=== PATIENT | male | born 1950 | race Caucasian/White ===

== ENCOUNTER 2017-04-24 13:15 | Emergency (ER) | payer MEDICARE ==
[2017-04-24 13:15] VITALS: BMI 33.5
[2017-04-24 13:29] VITALS: TEMP 98.3
[2017-04-24] MEDS ORDERED: Bacitracin 500 Units/gm Oint Foilpak UD TOP ONE (14:20)
[2017-04-24] MEDS ORDERED: Lidocaine 1%/Epinephrine 1:100000 30 ml vial IJ STA ×3 (14:20→14:36)
--- NOTE | 2017-04-24 14:25 | ED PDOC ---
Arrival/HPI - General Historian: Patient - History of Present Illness Time/Duration: Prior to Arrival Symptom Onset: Sudden Symptom Course: Unchanged Quality: Aching Activities at Onset: Rest Context: Walking, Slipped - General Chief Complaint: Trauma Time Seen by Provider: 04/24/17 13:17 - History of Present Illness Narrative History of Present Illness (Text): 04/24/17 14:22 66yo M PMH open heart surgery and recurrent falls who presents with a mechanical fall earlier this morning when he was going down the stairs outside his house. pt suffered head trauma and has a laceration on his R eyebrow. pt denies vision changes/ hearing changes/ dizziness/ headache/ LOC/ chest pain/ shortness of breath or any immobility. pt complains of baseline arthritis pain especially in his R knee. pt uses walker for assistance. PMD: Dr. Fernando ([facility]) Past Medical History - Provider Review Nursing Documentation Reviewed: Yes - Past History Past History: Non-Contributing - Infectious Disease Hx of Infectious Diseases: None - Tetanus Immunization Tetanus Immunization: Unknown - Cardiac Hx Cardiac Disorders: Yes Hx Coronary Artery Disease: Yes - Pulmonary Hx Respiratory Disorders: No - Neurological Hx Neurological Disorder: No - HEENT Hx HEENT Disorder: No - Renal Hx Renal Disorder: No - Endocrine/Metabolic Hx Endocrine Disorders: No - Hematological/Oncological Hx Blood Disorders: No - Integumentary Hx Dermatological Disorder: No - Musculoskeletal/Rheumatological Hx Musculoskeletal Disorders: Yes Hx Arthritis: Yes - Gastrointestinal Hx Gastrointestinal Disorders: No - Genitourinary/Gynecological Hx Genitourinary Disorders: No - Psychiatric Hx Psychophysiologic Disorder: No Hx Substance Use: No - Surgical History Hx Coronary Artery Bypass Graft: Yes Other/Comment: open heart sx 2016 Family/Social History - Physician Review Nursing Documentation Reviewed: Yes Family/Social History: No Known Family HX Smoking Status: Never Smoked Hx Alcohol Use: No Hx Substance Use: No Allergies/Home Meds Allergies/Adverse Reactions: Allergies No Known Allergies Allergy (Verified 08/01/16 12:53) Home Medications: Home Meds Medication Instructions Recorded Confirmed Aspirin [Ecotrin] 81 mg PO DAILY 08/01/16 04/24/17 Clopidogrel [Plavix] 75 mg PO DAILY 08/01/16 04/24/17 Review of Systems - Physician Review All systems were reviewed & negative as marked: Yes - Review of Systems Eyes: absent: Vision Changes ENT: absent: Hearing Changes Respiratory: absent: SOB Cardiovascular: absent: Chest Pain Musculoskeletal: Arthralgias. absent: Back Pain, Neck Pain Skin: Laceration (R eyebrow) Neurological: absent: Headache, Dizziness Physical Exam Vital Signs Reviewed: Yes Appearance: Positive for: Well-Appearing Pain Distress: None Mental Status: Positive for: Alert and Oriented X 3 - Systems Exam Head: Present: Atraumatic, Normocephalic, Laceration (4cm R eyebrow) Pupils: Present: PERRL Extroacular Muscles: Present: EOMI Conjunctiva: Present: Normal Mouth: Present: Moist Mucous Membranes Neck: Present: Normal Range of Motion. No: MIDLINE TENDERNESS Respiratory/Chest: Present: Clear to Auscultation, Good Air Exchange. No: Respiratory Distress, Accessory Muscle Use Cardiovascular: Present: Regular Rate and Rhythm, Normal S1, S2. No: Murmurs Abdomen: Present: Normal Bowel Sounds. No: Tenderness, Distention Back: Present: Normal Inspection Upper Extremity: Present: Normal Inspection, Normal ROM, Neurovascularly Intact Lower Extremity: Present: Normal Inspection, NORMAL PULSES, Other (multiple small abrasions on R knee). No: Edema, Deformity Neurological: Present: CN II-XII Intact, Speech Normal, Motor Func Grossly Intact, Normal Sensory Function Skin: Present: Warm, Dry, Laceration (R eyebrow) Psychiatric: Present: Alert, Oriented x 3 Vital Signs Temp Pulse Resp BP Pulse Ox 04/24/17 17:24 88 19 138/88 97 04/24/17 15:07 76 16 135/75 96 04/24/17 13:20 98.3 F 94 H 18 142/82 98 Medical Decision Making Re-evaluation Time: 16:22 Reassessment Condition: Re-examined, Improved - Lab Interpretations I have reviewed the lab results: Yes - RAD Interpretation Buffer Copper: Radiologist ED Course and Treatment: 04/24/17 14:35 Impression: 66yo M PMH recurrent falls who presents with a mechanical fall Plan: - CT Head - liod/epi for lac repair Progress: 04/24/17 16:22 Reassessment: laceration repaired. pt complaining of mild pain, otherwise offers no complaints. CT HEAD WITHOUT CONTRAST Report Date : 04/24/2017 14:55:09 Creator : Ney Swartz MD FINDINGS: HEMORRHAGE: No intracranial hemorrhage. BRAIN: No mass effect or edema. No atrophy or chronic microvascular ischemic changes. VENTRICLES: Unremarkable. No hydrocephalus. CALVARIUM: Unremarkable. PARANASAL SINUSES: Unremarkable as visualized. No significant inflammatory changes. MASTOID AIR CELLS: Unremarkable as visualized. No inflammatory changes. OTHER FINDINGS: None. IMPRESSION: No acute findings CT ORBITS WITHOUT CONTRAST Report Date : 04/24/2017 15:06:48 Creator : Ney Swartz MD FINDINGS: RIGHT ORBIT: RIGHT BONY ORBIT: Normal. RIGHT INTRAORBITAL STRUCTURES: Globe: Normal. Extraocular muscles: Normal. Post septal space: Normal. Optic Nerve: Normal. Lacrimal Apparatus: Normal. RIGHT PRESEPTAL SOFT TISSUES: There is soft tissue swelling anterior to the right orbit. LEFT ORBIT: LEFT BONY ORBIT: Normal. LEFT INTRAORBITAL STRUCTURES: Globe: Normal. Extraocular muscles: Normal. Post septal space: Normal Optic Nerve: Normal. . Lacrimal Apparatus: Normal. LEFT PRESEPTAL SOFT TISSUES: Normal. OTHER: There is partial opacification of the right frontal sinus and right ethmoid sinuses. IMPRESSION: Preseptal soft tissue swelling anterior to the right orbit. No evidence of fracture (Elia,Dayn) 66 yo male with head injury after a mechanical fall. Denies any lightheadedness , dizziness, chest pain, abdominal pain, back pain or any other symptoms prior to or after fall. Tetanus status unsure. Laceration repair completed by resident supervised by me. Patient advised to return to the ED in 7-10 days for suture removal. CT Head and Orbits reviewed. No acute bleed or fracture. Patient is able to walk with his baseline gait with his walked. Patient was advised to also follow up with his primary care doctor Dr. Echavarria. (Femi Jarvis) - RAD Interpretation Radiology Orders: 04/24/17 13:49 HEAD W/O CONTRAST [CT] Stat 04/24/17 14:46 ORBITS/ FACIALS W/O CONTRAST [CT] Stat - Medication Orders Current Medication Orders: Discontinued Medications Bacitracin (Bacitracin) 1 ea TOP ONCE ONE Stop: 04/24/17 14:21 Last Admin: 04/24/17 16:10 Dose: 1 ea Comments: given by Lidocaine/Epinephrine (Lidocaine 1%/Epinephrine 1:711122 30 Ml) 10 ml IJ STAT STA Stop: 04/24/17 14:21 Last Admin: 04/24/17 16:10 Dose: 10 ml Comments: given by Lidocaine/Epinephrine (Lidocaine 1%/Epinephrine 1:765196 30 Ml) 0 ml IJ STAT STA Stop: 04/24/17 14:35 Last Admin: 04/24/17 16:11 Dose: Lidocaine/Epinephrine (Lidocaine 1%/Epinephrine 1:475994 30 Ml) 0 ml IJ STAT STA Stop: 04/24/17 14:37 Last Admin: 04/24/17 16:11 Dose: Tramadol HCl (Ultram) 50 mg PO STAT STA Stop: 04/24/17 16:40 Last Admin: 04/24/17 16:45 Dose: 50 mg MAR Pain Assessment Document 04/24/17 16:45 CNR (Rec: 04/24/17 16:45 CNR [id number]) Pain Reassessment Is this a pain reassessment? Yes Sleep Is patient sleeping during reassessment? No Presence of Pain Presence of Pain Yes Location Left, Right or Bilateral Right Upper or Lower Upper Pain Location Body Claims Examiner Procedure: Wound Repair - Time Performed Time Performed: 15:30 - Time Out Time Out: Side verified, Site verified, Patient ID confirmed, Sterile procedures obs. - Procedure Procedure: Wound Repair: R eyebrow lac repair - Consent Obtained Consent obtained: Verbal - Performed by Performed by: Mid-level Provider - Indications Indication(s):: Laceration - Location Location:: Right, Eyebrow Shape:: Linear Dimensions Length cm: 4 Dimensions width cm: 0.5 Depth:: Epidermis - Anesthetic Technique Anesthetic Technique: Topical Local/Regional Anesthetic:: Lidocaine 1% w/epi - Debris Debris:: None - Irrigated Irrigated with ml of normal saline: 300 - Complexity Complexity:: Simple (one layer) - Wound repair method Sutures:: # (4), Size (5-0), Type (prolene), Technique (simple interrupted) - Muscle repiar layer closed with Muscle repair layer closed with:: Abx ointment applied (bacitracin), Dressing applied, Tetanus ordered - Patient tolerated procedure Patient Tolerated Procedure:: Well Disposition/Present on Arrival - Present on Arrival Any Indicators Present on Arrival: No History of DVT/PE: No History of Uncontrolled Diabetes: No Urinary Catheter: No History of Decub. Ulcer: No History Surgical Site Infection Following: None - Disposition Have Diagnosis and Disposition been Completed?: Yes Disposition Time: 16:41 Patient Plan: Discharge - Disposition Diagnosis: Fall, Head injury, Laceration Disposition: HOME/ ROUTINE Patient Problems: Current Active Problems Problem Status Onset Fall Acute Head injury Acute Laceration Acute Condition: IMPROVED Discharge Instructions (ExitCare): Laceration (ED), Head Injury (ED) Additional Instructions: Mr Morley, thank you for letting us take care of you today. Your provider was Dr. Jarvis. You were treated for Head Injury, Laceration, Knee abrasion The emergency medical care you received today was directed at your acute symptoms. If you were prescribed any medication, please fill it and take as directed. It may take several days for your symptoms to resolve. Return to the Emergency Department if your symptoms worsen, do not improve, or if you have any other problems. PLEASE RETURN TO THE EMERGENCY ROOM IN 7-10 DAYS FOR SUTURE REMOVAL. Return to the ED if wound because, red, swollen pus drainage or any other concern. Please contact your doctor or call one of the physicians/clinics you have been referred to that are listed on the Patient Visit Information form that is included in your discharge packet. Bring any paperwork you were given at discharge with you along with any medications you are taking to your follow up visit. Our treatment cannot replace ongoing medical care by a primary care provider (PCP) outside of the emergency department. Thank you for allowing the [facility] team to be part of your care today. If you had an X-Ray or CT scan: A Radiologist will review the ED reading if any change in treatment is needed we will contact you. If you had a blood, urine, or wound culture: It will take several days for the results, if any change in treatment is needed we will contact you. If you had an STI test: It will take 48 hours for the results. Please call after 1 week if you have not heard back. Referrals: John Hwang [Medical Doctor] - Follow up with primary Forms: [employer] ([place])
--- NOTE | 2017-04-24 14:56 | CT ---
PROCEDURE: CT HEAD WITHOUT CONTRAST. HISTORY: fall with head injury r/o ICH COMPARISON: None available. TECHNIQUE: Axial computed tomography images were obtained through the head/brain without intravenous contrast. Radiation dose: Total exam DLP = 781 mGy-cm. This CT exam was performed using one or more of the following dose reduction techniques: Automated exposure control, adjustment of the mA and/or kV according to patient size, and/or use of iterative reconstruction technique. FINDINGS: HEMORRHAGE: No intracranial hemorrhage. BRAIN: No mass effect or edema. No atrophy or chronic microvascular ischemic changes. VENTRICLES: Unremarkable. No hydrocephalus. CALVARIUM: Unremarkable. PARANASAL SINUSES: Unremarkable as visualized. No significant inflammatory changes. MASTOID AIR CELLS: Unremarkable as visualized. No inflammatory changes. OTHER FINDINGS: None. IMPRESSION: No acute findings
--- NOTE | 2017-04-24 15:08 | CT ---
PROCEDURE: CT ORBITS WITHOUT CONTRAST. HISTORY: r/o orbital fx COMPARISON: None available. TECHNIQUE: Axial CT images of the orbits were obtained. Coronal and sagittal reformats were generated. Radiation dose: Total exam DLP = 620 mGy-cm. This CT exam was performed using one or more of the following dose reduction techniques: Automated exposure control, adjustment of the mA and/or kV according to patient size, and/or use of iterative reconstruction technique. FINDINGS: RIGHT ORBIT: RIGHT BONY ORBIT: Normal. RIGHT INTRAORBITAL STRUCTURES: Globe: Normal. Extraocular muscles: Normal. Post septal space: Normal. Optic Nerve: Normal. Lacrimal Apparatus: Normal. RIGHT PRESEPTAL SOFT TISSUES: There is soft tissue swelling anterior to the right orbit. LEFT ORBIT: LEFT BONY ORBIT: Normal. LEFT INTRAORBITAL STRUCTURES: Globe: Normal. Extraocular muscles: Normal. Post septal space: Normal Optic Nerve: Normal. . Lacrimal Apparatus: Normal. LEFT PRESEPTAL SOFT TISSUES: Normal. OTHER: There is partial opacification of the right frontal sinus and right ethmoid sinuses. IMPRESSION: Preseptal soft tissue swelling anterior to the right orbit. No evidence of fracture
[2017-04-24 17:25] VITALS: BP 138/88; RESP 19
[2017-04-24] MEDS ORDERED: TDAP Vaccine 0.5 mL Syr IM ONE (17:57)
[2017-04-24 18:41] VITALS: PULSE 87; O2SAT 95
== END 2017-04-24 18:40 | disposition home or self-care (01) ==
LOC: ED 13:15
DX: S01.111A Laceration without foreign body of right eyelid and periocular area, initial encounter (principal); W10.8XXA Fall (on) (from) other stairs and steps, initial encounter; Z91.81 History of falling; Y93.89 Activity, other specified; Y92.89 Other specified places as the place of occurrence of the external cause; Z95.1 Presence of aortocoronary bypass graft; Z23 Encounter for immunization

== ENCOUNTER 2017-05-05 13:18 | Emergency (ER) | payer MEDICARE, BC ==
[2017-05-05 13:27] VITALS: BMI 36.5
[2017-05-05 13:31] VITALS: BP 143/81; PULSE 77; RESP 18; TEMP 98; O2SAT 97
--- NOTE | 2017-05-05 13:40 | ED PDOC ---
Arrival/HPI - General Chief Complaint: Suture/Staple Removal Time Seen by Provider: 05/05/17 13:37 Historian: Patient - History of Present Illness Narrative History of Present Illness (Text): 05/05/17 13:37 66yo male present to ED for sutures removal form his right eyebrow. He states that sutures was placed here 10days ago. He denies purulent discharge from wound , fever, redness. Past Medical History - Provider Review Nursing Documentation Reviewed: Yes - Past History Past History: Non-Contributing - Infectious Disease Hx of Infectious Diseases: None - Tetanus Immunization Tetanus Immunization: Unknown - Cardiac Hx Cardiac Disorders: Yes Hx TN: Yes Other/Comment: Open heart srugery. triple bypass - Pulmonary Hx Respiratory Disorders: No - Neurological Hx Neurological Disorder: No - HEENT Hx HEENT Disorder: No - Renal Hx Renal Disorder: No - Endocrine/Metabolic Hx Endocrine Disorders: No - Hematological/Oncological Hx Blood Disorders: No - Integumentary Hx Dermatological Disorder: No - Musculoskeletal/Rheumatological Hx Musculoskeletal Disorders: Yes Hx Arthritis: Yes - Gastrointestinal Hx Gastrointestinal Disorders: No - Genitourinary/Gynecological Hx Genitourinary Disorders: No - Psychiatric Hx Psychophysiologic Disorder: No Hx Substance Use: No - Surgical History Hx Coronary Artery Bypass Graft: Yes Hx Open Heart Surgery: Yes Other/Comment: open heart sx 2016 - Anesthesia Hx Anesthesia: Yes Hx Anesthesia Reactions: No Hx Malignant Hyperthermia: No Family/Social History - Physician Review Nursing Documentation Reviewed: Yes Family/Social History: Unknown Family HX Smoking Status: Never Smoked Hx Alcohol Use: No Hx Substance Use: No Allergies/Home Meds Allergies/Adverse Reactions: Allergies No Known Allergies Allergy (Verified 08/01/16 12:53) Home Medications: Home Meds Medication Instructions Recorded Confirmed Aspirin [Ecotrin] 81 mg PO DAILY 08/01/16 04/24/17 Clopidogrel [Plavix] 75 mg PO DAILY 08/01/16 04/24/17 Review of Systems - Physician Review All systems were reviewed & negative as marked: Yes - Review of Systems Constitutional: Normal Eyes: Normal ENT: Normal Respiratory: Normal Cardiovascular: Normal Gastrointestinal: Normal Genitourinary Male: Normal Musculoskeletal: Other (Suture removal) Skin: Normal Neurological: Normal Endocrine: Normal Hemo/Lymphatic: Normal Psychiatric: Normal Physical Exam Vital Signs Reviewed: Yes Vital Signs Temp Pulse Resp BP Pulse Ox 05/05/17 13:31 98.0 F 77 18 143/81 97 Temperature: Afebrile Blood Pressure: Normal Pulse: Regular Respiratory Rate: Normal Appearance: Positive for: Well-Appearing, Non-Toxic, Comfortable Pain Distress: None Mental Status: Positive for: Alert and Oriented X 3 - Systems Exam Head: Present: Atraumatic, Normocephalic Pupils: Present: PERRL Extroacular Muscles: Present: EOMI Conjunctiva: Present: Normal Mouth: Present: Moist Mucous Membranes Neck: Present: Normal Range of Motion Respiratory/Chest: Present: Clear to Auscultation, Good Air Exchange. No: Respiratory Distress, Accessory Muscle Use Cardiovascular: Present: Regular Rate and Rhythm, Normal S1, S2. No: Murmurs Abdomen: Present: Normal Bowel Sounds. No: Tenderness, Distention, Peritoneal Signs Back: Present: Normal Inspection Upper Extremity: Present: Normal Inspection. No: Cyanosis, Edema Lower Extremity: Present: Normal Inspection. No: Edema Neurological: Present: GCS=15, CN II-XII Intact, Speech Normal Skin: Present: Warm, Dry, Normal Color, Other ([address] on right eyebrow). No: Rashes Psychiatric: Present: Alert, Oriented x 3, Normal Insight, Normal Concentration Medical Decision Making ED Course and Treatment: 05/05/17 13:40 Suture area cleaned with betadine and peroxide. 4sutures removed. Area appear well approximated. Bacitracin applied. Disposition/Present on Arrival - Present on Arrival Any Indicators Present on Arrival: No History of DVT/PE: No History of Uncontrolled Diabetes: No Urinary Catheter: No History of Decub. Ulcer: No History Surgical Site Infection Following: None - Disposition Have Diagnosis and Disposition been Completed?: Yes Diagnosis: Visit for suture removal Disposition: HOME/ ROUTINE Disposition Time: 13:40 Patient Plan: Discharge Condition: STABLE Discharge Instructions (ExitCare): Stitches Removal (ED) Additional Instructions: Keep area clean and dry Follow up with your doctor Return to ED for any new or worsening symptoms Referrals: [facility] at [facility] [place] [Outside] - Follow up with primary
== END 2017-05-05 13:50 | disposition home or self-care (01) ==
LOC: ED 13:18
DX: Z48.02 Encounter for removal of sutures (principal)